=== PATIENT | male | born 1960 | race Caucasian/White ===

== ENCOUNTER 2024-07-21 15:48 | Emergency (ER) | payer BC, SELFPAY ==
[2024-07-21 15:59] VITALS: BP 134/77
[2024-07-21 16:28] LABS: % Basophils 0.5 % (0-2); % Immature Granulocytes 0.7 % (0-0.5); % Lymphocytes 6.9 % (20.5-51.1); % Monocytes 13.3 % (1.7-9.3); % Neutrophils 78.6 % (42.2-75.2); Absolute Basophils 0.1 10^3/uL (0-0.2); Absolute Immature Granulocytes 0.1 10^3/uL (0-0.05); Absolute Lymphocytes 0.6 10^3/uL (1.2-3.4); Absolute Monocytes 1.2 10^3/uL (0.1-0.6); Absolute Neutrophils 7.2 10^3/uL (1.4-6.5); Hematocrit 41.3 % (39.0-52.0); Hemoglobin 13.8 g/dL (13.0-18.0); Mean Corp Hgb Conc. 33.4 g/dL (33.0-37.0); Mean Corpuscular Hgb 29.3 pg (27.0-31.0); Mean Corpuscular Volume 87.7 fL (80.0-94.0); Mean Platelet Volume 10.7 fL (7.4-10.4); Nucleated Red Blood Cells % 0 % (-); Platelet Count 237 10^3/uL (130-400); Red Blood Cell Count 4.71 10^6/uL (4.70-6.10); Red Cell Dist. Width 13.7 % (11.5-14.5); White Blood Cell Count 9.2 10^3/uL (4.8-10.8)
[2024-07-21 16:31] LABS: ALT (SGPT) 40 U/L (0-50); AST (SGOT) 55 U/L (17-59); Albumin 3.4 g/dl (3.5-5.0); Alkaline Phosphatase 68 U/L (38-126); Blood Urea Nitrogen 26 mg/dl (9-20); Calcium 8.2 mg/dl (8.4-10.2); Carbon Dioxide 23 mmol/L (22-30); Chloride 100 mmol/L (98-107); Glucose 161 mg/dl (70-99); Lipase 118 U/L (23-300); Potassium 3.7 mmol/L (3.5-5.1); Sodium 132 mmol/L (135-145); Total Bilirubin 1.1 mg/dl (0.2-1.3); Total Protein 6.1 g/dl (6.3-8.2); eGFR > 60.00
[2024-07-21 16:46] LABS: COVID-19 Antigen Negative (Negative)
[2024-07-21 17:27] VITALS: BP 131/76
[2024-07-21] MEDS: TYLENOL 650 MG PO (17:58)
--- NOTE | 2024-07-21 19:19 | ED.GENMED ---
History of Present Illness
General
Chief Complaint: Abdominal Symptoms
Source: patient
Exam Limitations: none
Time Seen by Provider: 07/21/24 18:15
Nursing documentation reviewed up to this point in time: agreed with
History of Present Illness
History of Present Illness:
63-year-old male presenting to the emergency department today with concerns of extreme fatigue over the past 6 days with associated nausea vomiting diarrhea as well as body aches, sore throat nasal congestion and some coughing. Has had significant
decreased appetite. Feels very nauseous and has vomited after taking medication for symptoms. Only medical history is BPH.
Past History
Past History
ED Past Medical History: Other (BPH)
ED Past Surgical History: Appendectomy and Other (Hernia repair)
Social History
Tobacco: Non-smoker
Alcohol: None
Personal: Single
Living: with family
Employment: Employed
Family History
Family History: Other (Noncontributory)
Review of Systems
Review of Systems
Allergies reviewed?: Yes
All Other Systems: ROS reviewed and negative except as documented in HPI and ROS
Phy Exam
Physical Exam
Physical Exam:
GENERAL: Alert , in no apparent distress
EYE: pupils equal and reactive
NECK: Supple, no significant adenopathy.
ENT: o/p clr, mmm.
CARDIAC: Regular rate and rhythm .
LUNGS: Clear breath sounds bilaterally, no acute respiratory distress, no wheezes/rales/rhonchi
ABDOMEN: Soft, without focal tenderness, no r/g, no cvat
NEUROLOGICAL: Alert and oriented, no focal neuro deficits
SKIN: Warm and dry, skin intact.
MUSCULOSKELETAL: No edema, well perfused.
PSYCH: Normal and appropriate interaction.
Course
Orders/Labs/Results
Orders:
Orders
07/21/24 16:07
COVID-19 Antigen Urgent
Source: Nasal Swab
Complete Blood Count/With Diff Urgent
Comprehensive Metabolic Panel Urgent
Lipase Urgent
Monotest Urgent
Comment: ADDON
TSH Reflex To Free T4 Urgent
Comment: ADDON
Influenza A+B Rapid Molecular Urgent
DOMINIC Source: Nasal Swab
Specimen Description:
07/21/24 17:56
Acetaminophen [Tylenol] 650 mg .ROUTE .STK-MED ONE
07/21/24 17:57
Acetaminophen [Tylenol] 650 mg PO NOW STA
07/21/24 18:36
Add On- LAB Urgent
Tests Added?: monotest, tsh free t4
07/21/24 19:14
0.9% Sodium Chloride 1000 ml [Nss] 1,000 ml IV BOLUS
Dexamethasone Sod Phosphate [Decadron] 10 mg IV NOW STA
Ketorolac [Toradol] 15 mg IV NOW STA
Ondansetron Injectable [Zofran] 4 mg IV NOW STA
07/21/24 21:49
Chest [CR Chest - 2 Views ] Urgent
Comment:
Reason For Exam: cough sob
07/21/24 22:32
Azithromycin [Zithromax] 500 mg PO NOW STA
CefTRIAXone [Rocephin] 2,000 mg IV NOW STA
07/21/24 22:33
Sterile Water [Sterile Water For Injection] 20 ml .ROUTE .STK-MED
07/21/24 22:45
Azithromycin 500 mg/250 ml [Zithromax Infusion] 500 mg in 250 ml IV NOW
Ondansetron Injectable [Zofran] 4 mg IV NOW STA
Abnormal Lab Results
07/21/24
16:07
MPV 10.7 H fL
(7.4-10.4)
Abs Immat Gran (auto) 0.1 H 10^3/uL
(0-0.05)
Absolute Neuts (auto) 7.2 H 10^3/uL
(1.4-6.5)
Absolute Lymphs (auto) 0.6 L 10^3/uL
(1.2-3.4)
Absolute Monos (auto) 1.2 H 10^3/uL
(0.1-0.6)
Immature Gran % 0.7 H %
(0-0.5)
Neutrophils % 78.6 H %
(42.2-75.2)
Lymphocytes % 6.9 L %
(20.5-51.1)
Monocytes % 13.3 H %
(1.7-9.3)
Sodium 132 L mmol/L
(135-145)
BUN 26 H mg/dl
(9-20)
Glucose 161 H mg/dl
(70-99)
Calcium 8.2 L mg/dl
(8.4-10.2)
Total Protein 6.1 L g/dl
(6.3-8.2)
Albumin 3.4 L g/dl
(3.5-5.0)
07/21/24 16:07
07/21/24 16:07
Vital Signs
Initial and Last Documented VS:
Initial Vital Signs
Temp Pulse Resp BP Pulse Ox
100.6 F H 94 18 134/77 96
07/21/24 15:59 07/21/24 15:59 07/21/24 15:59 07/21/24 15:59 07/21/24 15:59
Last Documented Vital Signs
Temp Pulse Resp BP Pulse Ox
100.6 F H 62 22 123/82 98
07/21/24 15:59 07/22/24 00:15 07/22/24 00:15 07/22/24 00:00 07/22/24 00:00
MDM/Problems Addressed
MDM/Problems Addressed:
63-year-old male presenting to the emergency department today with concerns of extreme fatigue nausea vomit diarrhea and upper respiratory symptoms over the past 5 days. Denies any chest pain shortness of breath no specific pain to the abdomen has
had decreased appetite. Patient has had a cough. Low-grade temperature upon arrival here 100.6 otherwise vital signs are normal. No white count sodium level 132 BUN to creatinine ratio elevated consistent with potential dehydration. Was given
fluids. COVID and flu test negative. X-ray showing likely pneumonia to the left lower lobe. Patient was given initial IV dose here otherwise able to tolerate by mouth generally well-appearing plan for outpatient treatment. Written for additional
oral antibiotics return precautions were given.
*Critical Care Note
Total Time (30-74mins, 75-104mins- exclusive of procedures): Not Applicable
ED Attending Note
-
Portions of this chart may have been created with voice recognition software.� Occasional wrong word or��sound alike� substitutions may have occurred due to the inherent limitations of voice recognition software.
Discharge Plan
Departure
Patient Disposition: Home (Routine Discharge)
Date of Disposition: 07/22/24
Time of Disposition: 00:49
Patient with high blood pressure during this ER visit?: No
Condition: Good
Covid-19: Not Applicable
Discharge Problem:
Pneumonia
Instructions: Pneumonia in adults
Prescriptions:
New
cefpodoxime 200 mg tablet
200 mg PO BID 7 Days Qty: 14 0RF
azithromycin 500 mg tablet
500 mg PO DAILY 2 Days Qty: 2 0RF
ondansetron 4 mg tablet,disintegrating
4 mg PO Q6H PRN (Reason: nausea and vomiting) Qty: 7 0RF
No Action
tamsulosin [Flomax] 0.4 MG capsule
0.4 mg PO HS
Referrals:
Melvin Caldwell MD [Family Provider] -
Activity Restrictions/Additional Instructions:
You came to the emergency department today with concerns of ongoing generalized symptoms. You are found to have a likely pneumonia. Please take prescribed antibiotics and stay hydrated. You can use Zofran to help with nausea. Return, new or
concerning symptoms.
Interventions
Interventions:
*Risk Screen - Suicide Last Done: 07/21/24 15:59
*General Assessment Last Done: 07/21/24 15:59
*Neglect/Abuse Screening Last Done: 07/21/24 19:10
*ED COVID-19 Vaccine History Last Done: 07/21/24 15:59
RQ-Cmqogp-Tomtwvwfzu Assessment Last Done: 07/21/24 19:09
Discharge Date and Time
Print Language: DANISH
[2024-07-21 19:23] LABS: Monotest Negative (Negative)
[2024-07-21] MEDS: ZOFRAN 4 MG IV ×2 (19:37→22:50)
[2024-07-21] MEDS: DECADRON 10 MG IV (19:37)
[2024-07-21] MEDS: TORADOL 15 MG IV (19:38)
[2024-07-21] MEDS: NSS 1000 IV (19:38)
[2024-07-21 21:00] VITALS: BP 109/63
[2024-07-21] MEDS: ZITHROMAX 500 MG PO (22:36)
[2024-07-21] MEDS: ROCEPHIN 2000 MG IV (22:36)
[2024-07-21 22:39] VITALS: BP 113/80
[2024-07-21] MEDS: ZITHROMAX INFUSION 250 IV (22:51)
[2024-07-21 22:56] VITALS: BP 121/69
[2024-07-21 23:00] VITALS: BP 111/73
[2024-07-22] VITALS: BP 123/82
== END 2024-07-22 01:28 | disposition home or self-care (01) ==
LOC: EMR 15:48
PROVIDERS: Emergency Medicine; EMERGENCY PHYSICIAN Emergency Medicine; FAMILY PHYSICIAN Family Medicine
DX: J18.9 Pneumonia, unspecified organism (principal); R11.2 Nausea with vomiting, unspecified; R19.7 Diarrhea, unspecified; N40.0 Benign prostatic hyperplasia without lower urinary tract symptoms; Z90.49 Acquired absence of other specified parts of digestive tract; Z11.52 Encounter for screening for COVID-19
CPT/HCPCS: 96365; 96375; 96376; 99284; 71046; 80053; 83690; 84443; 85025; 86308; 87502; 87811